=== PATIENT | male | born 1980 | race Caucasian/White ===

== ENCOUNTER 2016-12-05 18:53 | Inpatient (IN) | payer SELFPAY ==
[~2016-12-05] VITALS: Ht 165.1 cm; Wt 84.1 kg
[2016-12-05] MEDS ORDERED: SODIUM CHLORIDE 0.9% 1,000 ML IV ONE ×2 (21:00)
[2016-12-05] MEDS ORDERED: LORAZEPAM 2MG/ML CPJ IV ONE (21:00)
[2016-12-05 21:52] LABS: CHLORIDE 96 mEq/L (98-107); INDEX HEMOLYSI 1 (1-3); INDEX ICTERIC 1 (1-4); INDEX LIPEMIC 1 (1-3)
[2016-12-05 21:53] LABS: BASOPHILS % 1.4 % (0.0-2.0); EOSINOPHILS % 2.1 % (0.0-5.0); HEMOGLOBIN. 8.1 g/dL (14.0-18.0); LYMPHOCYTES % 17.6 % (20.0-50.0); MEAN CORPUSCULAR HEMOGLOBIN 19.5 pg (28.0-32.0); MEAN CORPUSCULAR HGB CONC 29.1 g/dL (31.0-37.0); MEAN CORPUSCULAR VOLUME 67.2 fL (80.0-94.0); MEAN PLATELET VOLUME 8.9 fl (7.4-10.4); MONOCYTES % 12.7 % (2.0-8.0); NEUTROPHILS % 66.2 % (40.0-76.0); PLATELET 138 x1000/uL (130-400); RED BLOOD CELL COUNT 4.16 mill/uL (4.7-6.1); WHITE BLOOD COUNT 7.2 x1000/uL (4.5-11.0)
[2016-12-05 21:57] LABS: ANION GAP 16; CALCIUM 9.1 mg/dL (8.5-10.1); CARBON DIOXIDE 26 mEq/L (21-32); DIFFERENTIAL COMMENT 1; ETHANOL BLOOD < 10 mg/dL; UREA NITROGEN BLOOD 5 mg/dL (7-21); eGFR > 60 mL/min (>60)
[2016-12-05 21:58] LABS: ADD RBC MORPHOLOGY YES
[2016-12-05 22:52] LABS: *AMPHETAMINES SCREEN URINE NEGATIVE (NEGATIVE); *BARBITURATES SCREEN URINE NEGATIVE (NEGATIVE); *BENZODIAZEPINES SCREEN URINE NEGATIVE (NEGATIVE); *COCAINE SCREEN URINE NEGATIVE (NEGATIVE); CANNABINOID URINE SCREEN NEGATIVE (NEGATIVE); ECSTASY MDMA SCREEN URINE NEGATIVE (NEGATIVE); METHADONE URINE SCREEN NEGATIVE (NEGATIVE); OPIATES URINE SCREEN NEGATIVE (NEGATIVE); PHENCYCLIDINE URINE SCREEN NEGATIVE (NEGATIVE)
[2016-12-05] MEDS ORDERED: MAGNESIUM/ALUMINUM HYDROXIDE/SIMETHICONE 30ML UDC PO PRN (23:00)
[2016-12-05] MEDS ORDERED: LORAZEPAM 2MG/ML CPJ IV PRN (23:00)
[2016-12-05] MEDS ORDERED: ONDANSETRON HCL 4MG/2ML VIAL IV PRN (23:00)
[2016-12-05] MEDS ORDERED: CLONIDINE 0.1MG TABLET PO PRN (23:00)
[2016-12-05] MEDS ORDERED: IPRATROPIUM/ALBUTEROL 0.5-3(2.5)MG/3ML NEB INH PRN (23:00)
[2016-12-05] MEDS ORDERED: GUAIFENESIN 200MG/10ML SUGAR FREE UDC PO PRN (23:00)
[2016-12-05] MEDS ORDERED: NA PHOS,M-B/NA PHOS,DI-BA ENEMA 118ML PR PRN (23:00)
[2016-12-05] MEDS ORDERED: ACETAMINOPHEN 325MG TABLET PO PRN (23:00)
[2016-12-05] MEDS ORDERED: DOCUSATE SODIUM 100MG CAPSULE PO PRN (23:00)
[2016-12-05 23:30] LABS: INDEX HEMOLYSI 1 (1-3); INDEX ICTERIC 1 (1-4); INDEX LIPEMIC 1 (1-3); IRON 34 ug/dL (50-175); TOTAL IRON BINDING CAPACITY 534 ug/dL (250-450)
[2016-12-06] VITALS (10 sets, daily range): BP systolic 133–174; BP diastolic 83–122
[2016-12-06 01:29] LABS: ANISOCYTOSIS 1+; HYPOCHROMASIA 1+; PLATELET ESTIMATE NORMAL
[2016-12-06] MEDS ORDERED: MVI, ADULT NO.1 10 ML, FOLIC ACID 1 MG, THIAMINE HCL 100 MG in SODIUM CHLORIDE 0.9% 1,0... IV NR ×4 (03:30)
[2016-12-06] MEDS ORDERED: CHLORDIAZEPOXIDE 25MG CAPSULE PO SCH (06:00)
[2016-12-06] MEDS ORDERED: PANTOPRAZOLE SODIUM 40 MG/VIAL IV SCH (06:00)
[2016-12-06 08:21] LABS: INDEX HEMOLYSI 1 (1-3)
[2016-12-06 08:36] LABS: VITAMIN B12 SERUM 734 pg/mL (211-911)
[2016-12-06 08:49] LABS: FOLIC ACID (FOLATE) SERUM > 20.00 ng/mL (>5.38)
[2016-12-06] MEDS ORDERED: METOPROLOL TARTRATE 25MG TABLET PO SCH (09:00)
[2016-12-06] MEDS ORDERED: KETOCONAZOLE 2% CREAM 15GM TOP SCH (17:00)
== END 2016-12-06 17:25 | disposition home or self-care (01) | DRG 775 ==
LOC: ER 21:00 → 5EST 22:53
PROVIDERS: ADMIT Internal Medicine; ATTEND Internal Medicine
DX: F10.239 Alcohol dependence with withdrawal, unspecified (principal); E87.1 Hypo-osmolality and hyponatremia; D64.9 Anemia, unspecified; Y90.0 Blood alcohol level of less than 20 mg/100 ml
CPT/HCPCS: 36415; 80048; 80305; 82607; 82746; 83036; 83540; 83550; 85025; 96374; 99285; C9113; G0482; J2060; J3411; J3490; J7030